=== PATIENT | female | born 1960 | race African-American/Black ===

== ENCOUNTER → 2016-11-09 | Outpatient (CLI) | payer OTHER | LOC: OD 08:15 | PROVIDERS: ATTEND Physician Assistant | DX: M54.5 Low back pain (principal) | CPT/HCPCS: 72110 ==

== ENCOUNTER → 2017-10-01 | Outpatient (CLI) | payer OTHER ==
--- NOTE | 2017-10-01 12:35 | RADIOLOGY REPORT (SQ) ---
EXAM DESCRIPTION: T SPINE AP/LAT COMPLETED DATE/TIME: 10/01/2017 10:34 am REASON FOR STUDY: LOW BACK PAIN M54.5 LOW BACK PAIN COMPARISON: None. NUMBER OF VIEWS: Two views. TECHNIQUE: AP and lateral radiographic images acquired of the thoracic spine. LIMITATIONS: None. FINDINGS: MINERALIZATION: Normal. ALIGNMENT: Slight scoliosis apex to the right. VERTEBRAE: No fracture or bone lesion. Mild anterior osteophytes off of the thoracic vertebrae. DISCS: Slight disc space narrowing at multiple levels. HARDWARE: None in the spine. MEDIASTINUM AND SOFT TISSUES: Normal heart size and aortic contour. No soft tissue abnormality. VISUALIZED LUNG SHAH: Clear. OTHER: No other significant finding. IMPRESSION: 1 Slight scoliosis and mild degenerative changes involving the thoracic spine. 2. No acute osseous findings. TECHNICAL DOCUMENTATION: JOB ID: [id number] [email or web address]- All Rights Reserved Reading location - IP/workstation name: [email or web address]
== END ==
LOC: OD 09:11
PROVIDERS: ATTEND Physician Assistant
DX: M54.5 Low back pain (principal)
CPT/HCPCS: 72070

== ENCOUNTER 2018-01-31 00:27 | Emergency (ER) | payer OTHER ==
[2018-01-31] MEDS ORDERED: ASPIRIN 81 MG TABLET, CHEWABLE PO ONE (01:14)
--- NOTE | 2018-01-31 01:16 | ER Document Report ---
ED Medical Screen (RME) - General Chief Complaint: Palpitations Stated Complaint: CHEST PAIN Time Seen by Provider: 01/31/18 01:11 Mode of Arrival: Ambulatory Information source: Patient Notes: 57-year-old female presented to ED for complaint of heart racing and fluttering a lot for the last 2 weeks. She states it was much worse today. She states it was racing and fluttering all day today. He states she got off work at about 10 and sit down in the chair and her heart was racing so much that she got nervous called her daughter decided to come in to the hospital tonight instead of waiting until she was off work on Sunday. States she has not called and told her doctor about this pain and racing heart. Patient is alert oriented respirations regular and nonlabored lungs clear at this time. No palpitations at this time. I have greeted and performed a rapid initial assessment of this patient. A comprehensive ED assessment and evaluation of the patient, analysis of test results and completion of medical decision making process will be conducted by an additional ED providers. TRAVEL OUTSIDE OF THE [place] IN LAST 30 DAYS: No - Related Data Allergies/Adverse Reactions: No Known Allergies Allergy (Verified 01/08/13 21:04) Past Medical History - Past Medical History Cardiac Medical History: Reports: Hx Hypertension - ON ATENOLOL CONTROLLED WITH MEDS Denies: Hx Coronary Artery Disease, Hx Heart Attack Pulmonary Medical History: Denies: Hx Asthma - HX OF WHEEZING, Hx Bronchitis, Hx COPD, Hx Pneumonia Neurological Medical History: Denies: Hx Cerebrovascular Accident, Hx Seizures Musculoskeltal Medical History: Denies Hx Arthritis - Immunizations Hx Diphtheria, Pertussis, Tetanus Vaccination: Yes Physical Exam - Vital signs Vitals: Temp Pulse Resp BP Pulse Ox 97.9 F 88 16 140/75 H 95 01/31/18 00:49 01/31/18 00:49 01/31/18 00:49 01/31/18 00:49 01/31/18 00:49 Course - Vital Signs Vital signs: Temp Pulse Resp BP Pulse Ox 97.9 F 88 16 140/75 H 95 01/31/18 00:49 01/31/18 00:49 01/31/18 00:49 01/31/18 00:49 01/31/18 00:49 Doctor's Discharge - Discharge Referrals: ELIZABETH,PAOLA, PA [Primary Care Provider] - Follow up as needed
--- NOTE | 2018-01-31 02:04 | RADIOLOGY REPORT (SQ) ---
EXAM DESCRIPTION: XR CHEST 2 VIEWS COMPLETED DATE/TME: 01/31/2018 01:13 CLINICAL HISTORY: chest fluttering and racing COMPARISON: None. FINDINGS: Frontal and lateral views of the chest. Tortuosity of the thoracic aorta. Heart is not enlarged. No consolidation, pneumothorax, or pleural effusion. Degenerative change of the spine. No acute osseous abnormality identified. Upper abdominal soft tissues are unremarkable. IMPRESSION: 1. No acute pulmonary process identified.
[2018-01-31 02:12] LABS: ALANINE AMINOTRANSFERASE 21 U/L (9-52); ALBUMIN 4.2 g/dL (3.5-5.0); ALKALINE PHOSPHATASE 67 U/L (38-126); ANION GAP 10 (5-19); ASPARTATE AMINO TRANSFERASE 16 U/L (14-36); BILIRUBIN,DIRECT 0.3 mg/dL (0.0-0.4); BILIRUBIN,TOTAL 0.6 mg/dL (0.2-1.3); BLOOD UREA NITROGEN 16 mg/dL (7-20); CALCIUM 9.7 mg/dL (8.4-10.2); CARBON DIOXIDE 30 mmol/L (22-30); CHLORIDE 107 mmol/L (98-107); CREATINE KINASE 68 U/L (30-135); GLUCOSE 96 mg/dL (75-110); POTASSIUM 3.7 mmol/L (3.6-5.0); SODIUM 147.3 mmol/L (137-145); TOTAL PROTEIN 7.2 g/dL (6.3-8.2)
[2018-01-31 02:16] LABS: ABSOLUTE BASOPHILS # (AUTO) 0.1 10^3/uL (0.0-0.2); ABSOLUTE EOSINOPHILS # (AUTO) 0.2 10^3/uL (0.0-0.6); ABSOLUTE LYMPHOCYTES (AUTO) 2.2 10^3/uL (0.5-4.7); ABSOLUTE MONOCYTES (AUTO) 0.6 10^3/uL (0.1-1.4); ABSOLUTE NEUT (AUTO) 4.5 10^3/uL (1.7-8.2); BASOPHILS % (AUTO) 0.7 % (0-2); EOSINOPHILS % (AUTO) 3.1 % (0-6); HEMATOCRIT 38.4 % (36.0-47.0); HEMOGLOBIN 13.4 g/dL (12.0-15.5); LYMPHOCYTES % (AUTO) 28.9 % (13-45); MEAN CORPUSCULAR HEMOGLOBIN 31.3 pg (27.0-33.4); MEAN CORPUSCULAR VOLUME 90 fl (80-97); MONOCYTES % (AUTO) 8.1 % (3-13); PLATELET COUNT 184 10^3/uL (150-450); RED BLOOD COUNT 4.29 10^6/uL (3.72-5.28); RED CELL DISTRIBUTION WIDTH 13.5 % (11.5-14.0); SEGMENTED NEUTROPHILS % (AUTO) 59.2 % (42-78); TOTAL CELLS COUNTED % (AUTO) 100 %; WHITE BLOOD COUNT 7.6 10^3/uL (4.0-10.5)
[2018-01-31 02:26] LABS: TROPONIN I < 0.012 ng/mL
--- NOTE | 2018-01-31 03:58 | ER Document Report ---
ED Cardiac - General Chief Complaint: Palpitations Stated Complaint: CHEST PAIN Time Seen by Provider: 01/31/18 01:11 Mode of Arrival: Ambulatory Notes: Patient is a 57-year-old female who presents with chief complaint of palpitations for 2 weeks. Patient reports that it is very irregular, only lasts for a few minutes and then seems to go away on its own. Patient denies any aggravating factors. Patient denies heavy use of caffeine or any other substances. Patient denies any other cardiac history. Patient denies any chest pain or shortness of breath. TRAVEL OUTSIDE OF THE [place] IN LAST 30 DAYS: No - Related Data Allergies/Adverse Reactions: No Known Allergies Allergy (Verified 01/08/13 21:04) Past Medical History - General Information source: Patient - Social History Smoking Status: Current Every Day Smoker Chew tobacco use (# tins/day): No Frequency of alcohol use: Social Drug Abuse: None Lives with: Family Family History: Reviewed & Not Pertinent Patient has suicidal ideation: No Patient has homicidal ideation: No - Past Medical History Cardiac Medical History: Reports: Hx Hypertension - ON ATENOLOL CONTROLLED WITH MEDS Denies: Hx Coronary Artery Disease, Hx Heart Attack Pulmonary Medical History: Denies: Hx Bronchitis, Hx COPD, Hx Pneumonia Comment Only: Hx Asthma - HX OF WHEEZING Neurological Medical History: Denies: Hx Cerebrovascular Accident, Hx Seizures Renal/ Medical History: Denies: Hx Peritoneal Dialysis Musculoskeletal Medical History: Denies Hx Arthritis Past Surgical History: Reports: Hx Section - Immunizations Hx Diphtheria, Pertussis, Tetanus Vaccination: Yes Review of Systems - Review of Systems Constitutional: No symptoms reported EENT: No symptoms reported Cardiovascular: See HPI Respiratory: No symptoms reported Gastrointestinal: No symptoms reported Genitourinary: No symptoms reported Female Genitourinary: No symptoms reported Musculoskeletal: No symptoms reported Skin: No symptoms reported Hematologic/Lymphatic: No symptoms reported Neurological/Psychological: No symptoms reported Physical Exam - Vital signs Vitals: Temp Pulse Resp BP Pulse Ox 97.9 F 88 16 140/75 H 95 01/31/18 00:49 01/31/18 00:49 01/31/18 00:49 01/31/18 00:49 01/31/18 00:49 - Notes Notes: PHYSICAL EXAMINATION: GENERAL: Well-appearing, well-nourished and in no acute distress. HEAD: Atraumatic, normocephalic. EYES: Pupils equal round and reactive to light, extraocular movements intact, conjunctiva are normal. ENT: Nares patent, oropharynx clear without exudates. Moist mucous membranes. NECK: Normal range of motion, supple without lymphadenopathy LUNGS: Breath sounds clear to auscultation bilaterally and equal. No wheezes rales or rhonchi. HEART: Regular rate and rhythm without murmurs ABDOMEN: Soft, nontender, nondistended abdomen. No guarding, no rebound. No masses appreciated. Female : deferred Musculoskeletal: Normal range of motion, no pitting or edema. No cyanosis. NEUROLOGICAL: Cranial nerves grossly intact. Normal speech, normal gait. Normal sensory, motor exams PSYCH: Normal mood, normal affect. SKIN: Warm, Dry, normal turgor, no rashes or lesions noted. Course - Re-evaluation Re-evalutation: 57-year-old otherwise healthy female initially seen by triage provider. Patient has been having intermittent palpitations for the last 2 weeks. Patient reports that these are self resolving. Patient denies any chest pain/ pressure or shortness of breath. EKG during today's visit reveals a sinus rhythm, rate of 92, normal axis with no ST segment elevations or depressions. CBC, comprehensive metabolic panel and troponin are all unremarkable. Chest x- ray is normal with no cardiomegaly. Patient denies any episodes of the palpitations while in the department. Patient has been on the cardiac tech for several hours and we have captured no abnormal heart rhythms. Patient will be discharged in stable condition with plans to follow-up with Dr. Armstrong to discuss possible referral to service station operator for Holter monitoring. Patient understands that she can come back to the emergency department any time, if she experiences another episode of the heart fluttering we are more than happy to see her and do a reevaluation. - Vital Signs Vital signs: Temp Pulse Resp BP Pulse Ox 97.9 F 88 20 120/63 95 01/31/18 00:49 01/31/18 00:49 01/31/18 04:01 01/31/18 04:00 01/31/18 04:01 - Laboratory Result Diagrams: 01/31/18 01:45 01/31/18 01:45 Laboratory results interpreted by me: 01/31/18 01:45 Sodium 147.3 H Discharge - Discharge Clinical Impression: Palpitation Condition: Stable Disposition: HOME, SELF-CARE Additional Instructions: Palpitations (Irregular/Rapid Heartrate) Irregular or rapid heartbeat is called "palpitation." To diagnose the cause of palpitation, we have to "catch it in the act" with an EKG. Sinus Tachycardia: This is a rapid (but NORMAL) rhythm that can be due to fever, pain, anxiety, lack of sleep, over-exertion, or drugs. Cold medications, caffeine, and diet pills are particularly likely to cause tachycardia. Usually , all that's required is rest, reassurance, and avoiding caffeine, alcohol, nicotine, and unnecessary medicines. Paroxysmal Atrial Tachycardia (PAT): This abnormally rapid heartbeat is caused by a "short circuit" in the electrical system of the heart. It is not dangerous, unless other heart disease is present. These attacks of PAT may occur occasionally for years. Medication is available for treatment. Paroxysmal Atrial Fibrillation or Atrial Flutter: This is irregular electrical activity in the upper heart chamber. These abnormal rhythms often occur with valve disease or in hearts damaged by hardening of the arteries. These rhythms usually require further testing, for example a cardiac echo. Premature Beats: Extra beats occur more commonly after caffeine, nicotine , alcohol, cold pills, diet pills. Emotional stress or fatigue also provoke them. Extra beats are only dangerous when heart disease is present. They usually need no treatment. If they're frequent, or if evidence of heart disease develops, medication can be given to suppress them. If we were unable to "catch" the palpitations on EKG, you should try to get an EKG immediately if the symptoms begin again. Contact the physician at once if you develop persistent lightheadedness, shortness of breath, chest pain , or swelling of the ankles. Please follow-up with Dr. Armstrong. Call this morning to get an appointment. You may need to be set up with her service station operator for Holter monitoring. Please return to the emergency department if you develop worsening symptoms, shortness of breath or chest pain. Forms: Return to Work Referrals: PAOLA JOHNSON PA [NO LOCAL MD] - Follow up as needed
[2018-01-31 04:10] VITALS: BP 120/63
--- NOTE | 2018-01-31 20:40 | EKG REPORT ---
SEVERITY:- ABNORMAL ECG - SINUS RHYTHM BIATRIAL ABNORMALITIES : Confirmed by: Sharon Olson MD 31-Jan-2018 20:39:27
== END 2018-01-31 04:16 | disposition home or self-care (01) ==
LOC: ER 00:27
DX: R00.2 Palpitations (principal); R07.9 Chest pain, unspecified; F17.200 Nicotine dependence, unspecified, uncomplicated
CPT/HCPCS: 36415; 71046; 80053; 82550; 82553; 84484; 85025; 93005; 93010; 99285

== ENCOUNTER 2018-08-15 07:19 | Day surgery (SDC) | payer OTHER ==
[2018-08-15] MEDS ORDERED: DIPHENHYDRAMINE HCL 50 MG/ML VIAL ONE (07:27)
[2018-08-15] MEDS ORDERED: FENTANYL CITRATE INJ/PF 100 MCG/2 ML AMPUL ONE (07:27)
[2018-08-15] MEDS ORDERED: ONDANSETRON HCL INJ/PF 4 MG/2 ML SDV ONE (07:27)
[2018-08-15] MEDS ORDERED: EPINEPHRINE INJ 1 MG/10 ML DISP.SYRIN ONE (07:28)
[2018-08-15] MEDS ORDERED: GLUCAGON,HUMAN RECOMB 1 MG INJ ONE (07:28)
[2018-08-15] MEDS ORDERED: NALOXONE HCL INJ/PF 0.4 MG/1 ML SDV ONE (07:28)
[2018-08-15] MEDS ORDERED: FLUMAZENIL INJ 0.5 MG/5 ML VIAL ONE (07:28)
[2018-08-15] MEDS: MIDAZOLAM 2 MG/2 ML INJ ONE ×5 (08:18→08:44)
--- NOTE | 2018-08-15 09:15 | Discharge Summary ---
Discharge Summary (SDC) - Discharge Final Diagnosis: Sigmoid and rectal polyps; diverticulosis Date of Surgery: 08/15/18 Discharge Date: 08/15/18 Condition: Good Treatment or Instructions: [place] [id number] POST ENDOSCOPY DISCHARGE INSTRUCTIONS 1. Diet: Start clear liquids that a regular diet as tolerated. 2. Resume all preoperative medications. All oral anticoagulants and aspirins can be resumed 24 hours after procedure. 3. If a polypectomy was performed some bleeding per rectum may occur. This should stop within 3 days. If not, please contact the office. 4. If you had a colonoscopy you may experience some bloating and delayed return of normal bowel function for several days, your regular bowel movement pattern should resume within a week. 5. Please contact [facility] at to make an appointme nt with Dr. Ye for 1 to 3 weeks following procedure. 6. If you have any questions or concerns regarding your care,treatment plan or follow up, please contact our office. 7. Per clinical guidelines we recommend you undergo a repeat colonoscopy in 3 years or sooner pending final path report on the rectal polyp Referrals: GINA ALMENDAREZ MD [Primary Care Provider] - Discharge Diet: As Tolerated Discharge Activity: Activity As Tolerated Home Care Assistance: None Needed Report the Following to Your Physician Immediately: Shortness of Breath, Increase in Pain, Fever over 101 Degrees
--- NOTE | 2018-08-15 09:18 | Operative Report ---
Operative Report DATE OF SURGERY: 08/15/18 PREOPERATIVE DIAGNOSIS: 1. Personal history of colorectal polyps. 2. History of diverticulosis POSTOPERATIVE DIAGNOSIS: Same with. 1. Sigmoid colon polyps. 2. Upper rectal polyp OPERATION: 1. Total colonoscopy to cecum. 2. Sigmoid colon also rectal polypectomies with cold forceps and hot snare device SURGEON: DAREK CANCHOLA ANESTHESIA: Moderate Sedation TISSUE REMOVED OR ALTERED: Polyps COMPLICATIONS: None ESTIMATED BLOOD LOSS: Scant INTRAOPERATIVE FINDINGS: See below PROCEDURE: Obtaining informed consent the patient was taken from the preoperative holding area to the main endoscopy suite where monitoring devices were attached to the patient. Plan and surgical timeout were conducted The patient was placed in the left lateral decubitus position with knees to chest. A perianal examination was performed. There was no visible or palpable anorectal pathology. Sphincter tone was felt to be normal. Of note the patient required 6 mg of Versed and 100 mcg of fentanyl and had some discomfort during the procedure. The flexible adult colonoscope was advanced through the anal rectal canal, all the way to the cecum. Visualization of the cecum was achieved and the ileocecal valve, the appendiceal orifice and transillumination of the anterior abdominal wall. This was an excellent study on the well-prepped bowel. The colonoscope was withdrawn slowly and methodically checked and the mucosa carefully. There was no evidence of tumor, stricture, bleeding; there were 2 small hyperplastic polyps of the sigmoid colon approximately 33 cm from the anal verge which were removed with the cold snare, sent in the same specimen to pathology. In the upper rectum at approximately 18 cm from the anal verge was a pedunculated polyp approximately 5 mm in diameter which was hot snared removed and sent to pathology as upper rectal polyp. Polypectomy site cauterized satisfactorily. Photos taken. There were a few sigmoid diverticuli. The scope was slowly withdrawn through the anal rectal canal. Complete visualization of the rectum was achieved with photodocumentation. The scope was withdrawn to the patient's anus. The patient tolerated the procedure well and was taken to the recovery area in stable condition. Per surveillance guidelines, patient be appropriate candidate for follow-up colonoscopy in 3 years, or sooner pending final path report.
[2018-08-15 11:08] VITALS: BP 115/67
== END 2018-08-15 10:45 | disposition home or self-care (01) ==
LOC: END 07:19
PROVIDERS: ATTEND Surgery
DX: Z12.11 Encounter for screening for malignant neoplasm of colon (principal); K63.5 Polyp of colon; D12.7 Benign neoplasm of rectosigmoid junction; K57.30 Diverticulosis of large intestine without perforation or abscess without bleeding; Z86.010 Personal history of colon polyps; Z87.19 Personal history of other diseases of the digestive system; Z88.0 Allergy status to penicillin; I83.90 Asymptomatic varicose veins of unspecified lower extremity; I10 Essential (primary) hypertension; R00.2 Palpitations; M19.90 Unspecified osteoarthritis, unspecified site; Z87.891 Personal history of nicotine dependence; Z79.82 Long term (current) use of aspirin; Z79.899 Other long term (current) drug therapy; Z88.1 Allergy status to other antibiotic agents
CPT/HCPCS: 45380; 45385; 88305 ×2; J2250; J3010; J0171; J1200; J1610; J2310; J2405; J3490

== ENCOUNTER 2018-10-14 13:33 | Observation (INO) | payer OTHER ==
[2018-10-14 16:19] LABS: HEMATOCRIT 39.6 % (36.0-47.0); HEMOGLOBIN 13.8 g/dL (12.0-15.5); MEAN CORPUSCULAR HEMOGLOBIN 30.6 pg (27.0-33.4); MEAN CORPUSCULAR HGB CONC 34.8 g/dL (32.0-36.0); MEAN CORPUSCULAR VOLUME 88 fl (80-97); PLATELET COUNT 196 10^3/uL (150-450); RED BLOOD COUNT 4.49 10^6/uL (3.72-5.28); RED CELL DISTRIBUTION WIDTH 13.9 % (11.5-14.0); WHITE BLOOD COUNT 6.1 10^3/uL (4.0-10.5)
[2018-10-14] MEDS ORDERED: HYDROMORPHONE HCL INJ/PF 2 MG/ML AMPULE IV PRN (16:23)
[2018-10-14 16:32] LABS: ALANINE AMINOTRANSFERASE 31 U/L (9-52); ALBUMIN 4.3 g/dL (3.5-5.0); ALKALINE PHOSPHATASE 71 U/L (38-126); ANION GAP 9 (5-19); ASPARTATE AMINO TRANSFERASE 20 U/L (14-36); BILIRUBIN,DIRECT 0.2 mg/dL (0.0-0.4); BILIRUBIN,TOTAL 0.6 mg/dL (0.2-1.3); BLOOD UREA NITROGEN 17 mg/dL (7-20); CALCIUM 10.4 mg/dL (8.4-10.2); CARBON DIOXIDE 27 mmol/L (22-30); CHLORIDE 103 mmol/L (98-107); GLUCOSE 74 mg/dL (75-110); POTASSIUM 4.3 mmol/L (3.6-5.0); SODIUM 139.2 mmol/L (137-145); TOTAL PROTEIN 7.2 g/dL (6.3-8.2)
[2018-10-14] MEDS ORDERED: LORAZEPAM INJ 2 MG/1 ML VIAL ONE (17:59)
[2018-10-14] MEDS: METHYLPREDNISOLONE INJ 125 MG/2 ML SDV IV SCH (18:55)
--- NOTE | 2018-10-14 20:05 | PDOC H&P ---
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 She said she has difficulty performing her duties as a quality assurance auditor because of the radicular symptoms. Attempt was made on multiple occasions to obtain MRI outpatient without success, patient came to the office today literally with mobility dysfunction With symptoms that suggest cauda equina, she was admitted directly into the hospital for observation and management of her symptoms. MRI of the lumbar spine without contrast was obtained, it demonstrated disc bulging at L4-L5 level. There is bilateral facet arthropathy resulting in mild central canal stenosis. Also found was anterolisthesis of L4 on L5.She was admitted for observation, she is started on intravenous Solu-Medrol Past Medical History Cardiac Medical History: Reports: Hypertension - ON ATENOLOL CONTROLLED WITH MEDS GI Medical History: Reports: Gastroesophageal Reflux Disease Musculoskeltal Medical History: Reports: Arthritis Psychiatric Medical History: Reports: Depression Past Surgical History Past Surgical History: Reports: Section Social History Smoking Status: Former Smoker Family History Family History: Reviewed & Not Pertinent Parental Family History Reviewed: Yes Children Family History Reviewed: Yes Sibling(s) Family History Reviewed.: Yes Medication/Allergy Home Medications: Atenolol [Tenormin 50 mg Tablet] 50 mg PO DAILY 10/14/18 Cyclobenzaprine HCl [Flexeril 5 mg Tablet] 5 mg PO BIDP PRN 10/14/18 Meloxicam [Mobic] 7.5 mg PO DAILY 10/14/18 Ranitidine HCl [Zantac 150 mg Tablet] 150 mg PO DAILYP PRN 10/14/18 Pregabalin [Lyrica 75 mg Capsule] 75 mg PO Q12 #60 capsule 10/15/18 Tramadol HCl/Acetaminophen [Tramadol-Acetaminophn 37.5-325] 1 each PO Q6H #60 tablet 10/15/18 Allergies/Adverse Reactions: amoxicillin Allergy (Intermediate, Verified 08/15/18 07:26) SKIN TURNED RED AND ICHING Review of Systems Constitutional: ABSENT: chills, fever(s), headache(s), weight gain, weight loss Eyes: ABSENT: visual disturbances Ears: ABSENT: hearing changes Cardiovascular: ABSENT: chest pain, dyspnea on exertion, edema, orthropnea, palpitations Respiratory: ABSENT: cough, hemoptysis Gastrointestinal: ABSENT: abdominal pain, constipation, diarrhea, hematemesis, hematochezia, nausea, vomiting Genitourinary: ABSENT: dysuria, hematuria Musculoskeletal: ABSENT: joint swelling Integumentary: ABSENT: rash, wounds Neurological: PRESENT: numbness, paresthesias, restless legs Psychiatric: ABSENT: anxiety, depression, homidical ideation, suicidal ideation Endocrine: ABSENT: cold intolerance, heat intolerance, menstrual abnormalities, polydipsia, polyuria Hematologic/Lymphatic: ABSENT: easy bleeding, easy bruising, lymphadenopathy Physical Exam Vital Signs: Temp Pulse Resp BP Pulse Ox 97.7 F 74 17 140/84 H 97 10/14/18 14:49 10/14/18 14:49 10/14/18 14:49 10/14/18 14:49 10/14/18 14:49 Intake & Output 10/13/18 10/14/18 10/15/18 06:59 06:59 06:59 Weight 105 kg General appearance: PRESENT: no acute distress, well-developed, well-nourished Head exam: PRESENT: atraumatic, normocephalic Eye exam: PRESENT: conjunctiva pink, EOMI, PERRLA Ear exam: PRESENT: normal external ear exam Mouth exam: PRESENT: moist, tongue midline Neck exam: PRESENT: full ROM Respiratory exam: PRESENT: clear to auscultation bipin Cardiovascular exam: PRESENT: RRR, +S1, +S2 Vascular exam: PRESENT: normal capillary refill GI/Abdominal exam: PRESENT: normal bowel sounds, soft Rectal exam: PRESENT: deferred Neurological exam: PRESENT: alert, awake, oriented to person, oriented to place, oriented to time, oriented to situation, CN II-XII grossly intact Psychiatric exam: PRESENT: appropriate affect, normal mood Skin exam: PRESENT: dry, intact, warm Results Laboratory Results: 10/14/18 15:20 10/14/18 15:20 10/14/18 10/14/18 15:20 15:20 WBC 6.1 RBC 4.49 Hgb 13.8 Hct 39.6 MCV 88 MCH 30.6 MCHC 34.8 RDW 13.9 Plt Count 196 Sodium 139.2 Potassium 4.3 Chloride 103 Carbon Dioxide 27 Anion Gap 9 BUN 17 Creatinine 0.67 Est GFR ( Amer) > 60 Est GFR (Non-Af Amer) > 60 Glucose 74 L Calcium 10.4 H Total Bilirubin 0.6 AST 20 ALT 31 Alkaline Phosphatase 71 Total Protein 7.2 Albumin 4.3 Assessment & Plan - Diagnosis (1) Radiculopathy of lumbar region Is this a current diagnosis for this admission?: Yes Plan: She has radiculopathy of the lumbar spine, she was admitted for observation, treat with intravenous Solu-Medrol
[2018-10-14] MEDS ORDERED: CYCLOBENZAPRINE HCL 10 MG TABLET PO PRN (23:30)
[2018-10-14] MEDS ORDERED: FAMOTIDINE 20 MG TABLET PO PRN (23:30)
[2018-10-14] MEDS ORDERED: GABAPENTIN 300 MG CAPSULE PO ONE (23:59)
[2018-10-15] MEDS: METHYLPREDNISOLONE INJ 125 MG/2 ML SDV IV SCH ×2 (01:07→09:19)
[2018-10-15] MEDS: GABAPENTIN 300 MG CAPSULE PO SCH ×2 (05:27→14:50)
--- NOTE | 2018-10-15 08:31 | RADIOLOGY REPORT (SQ) ---
EXAM DESCRIPTION: MRI LUMBAR SPINE WITHOUT COMPLETED DATE/TIME: 10/14/2018 6:59 pm REASON FOR STUDY: BACK PAIN COMPARISON: None. TECHNIQUE: Sagittal and Axial imaging includes T1, T2, STIR and gradient echo sequences. Coronal T2/ HASTE imaging. LIMITATIONS: None. FINDINGS: VISUALIZED UPPER ABDOMEN: Limited evaluation. No acute or suspicious findings suggested. SEGMENTATION: No transitional anatomy. The lowest well-developed disc space is labeled L5-S1. ALIGNMENT: There is very slight anterolisthesis of L4 on L5. VERTEBRAE: Intact. BONE MARROW: Normal. No marrow replacement or reactive changes. DISC SIGNAL: Loss of normal water signal at L4-L5. Disc heights are fairly well-maintained. POSTERIOR ELEMENTS: Generally intact. No pars defect evident. HARDWARE: None in the spine. CORD AND CONUS: Normal in size and signal intensity. Conus at the appropriate level. SOFT TISSUES: No aortic aneurysm seen. No bulky retroperitoneal adenopathy or mass. No paraspinal mas s or fluid. L1-L2: No significant spinal stenosis or exit foraminal stenosis. L2-L3: No significant spinal stenosis or exit foraminal stenosis. L3-L4: There is bilateral facet arthropathy. This results in mild foraminal narrowing. L4-L5: There is an disc bulging. There is bilateral facet arthropathy. This results in mild central canal stenosis. There is mild bilateral foraminal narrowing. L5-S1: No significant spinal stenosis or exit foraminal stenosis. LOWER THORACIC: Incompletely imaged. No stenosis seen. SACRUM: Visualized upper sacrum intact. OTHER: No other significant findings. IMPRESSION: 1. Mild annular disc bulging at L4-L5. This along with anterolisthesis of L4 on L5 and facet arthropathy results in mild central canal stenosis. There is bilateral foraminal narrowing. 2. Facet arthropathy at L3-L4 resulting in mild bilateral foraminal narrowing. TECHNICAL DOCUMENTATION: JOB ID: [id number] [employer]- All Rights Reserved Reading location - IP/workstation name: [email or web address]
[2018-10-15] MEDS ORDERED: HYDROMORPHONE HCL INJ/PF 2 MG/ML AMPULE IV PRN (09:30)
[2018-10-15] MEDS ORDERED: MELOXICAM 7.5 MG TABLET PO SCH (10:00)
[2018-10-15] MEDS ORDERED: ATENOLOL 50 MG TABLET PO SCH (10:00)
[2018-10-15 12:33] VITALS: BP 145/80
--- NOTE | 2018-10-15 20:10 | PDOC DISCHARGE SUMMARY ---
General - Admit/Disc Date/PCP Admission Date/Primary Care Provider: 10/14/18 13:33 SOPHY PARKER MD Discharge Date: 10/15/18 - Discharge Diagnosis (1) Radiculopathy of lumbar region Is this a current diagnosis for this admission?: Yes - Additional Information Discharge Diet: As Tolerated Discharge Activity: Activity As Tolerated Prescriptions: Pregabalin [Lyrica 75 mg Capsule] 75 mg PO Q12 #60 capsule Tramadol HCl/Acetaminophen [Tramadol-Acetaminophn 37.5-325] 1 each PO Q6H #60 tablet Home Medications: Atenolol [Tenormin 50 mg Tablet] 50 mg PO DAILY 10/14/18 Cyclobenzaprine HCl [Flexeril 5 mg Tablet] 5 mg PO BIDP PRN 10/14/18 Meloxicam [Mobic] 7.5 mg PO DAILY 10/14/18 Ranitidine HCl [Zantac 150 mg Tablet] 150 mg PO DAILYP PRN 10/14/18 Pregabalin [Lyrica 75 mg Capsule] 75 mg PO Q12 #60 capsule 10/15/18 Tramadol HCl/Acetaminophen [Tramadol-Acetaminophn 37.5-325] 1 each PO Q6H #60 tablet 10/15/18 History of Present Illness History of Present Illness: SHIN LYMAN is a 58 year old female, She came to the office for evaluation of back pain with radicular symptoms involving the lower extremity, she has numbness ,tingling pain aggravated by movement, 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. 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 Attempt was made on multiple occasions to obtain MRI outpatient without success, patient came to the office today literally with mobility dysfunction With symptoms that suggest cauda equina, she was admitted directly into the hospital for observation and management of her symptoms. MRI of the lumbar spine without contrast was obtained, it demonstrated disc bulging at L4-L5 level. There is bilateral facet arthropathy resulting in mild central canal stenosis. Also found was anterolisthesis of L4 on L5.She was admitted for observation, she is started on intravenous Solu-Medrol Hospital Course Hospital Course: Patient was admitted for observation and management of lumbar radiculopathy, she was treated with intravenous Solu-Medrol. The MRI results was explained to the patient, she will be referred to pet nutrition specialist, Dr. Lozoya Physical Exam Vital Signs: Temp Pulse Resp BP Pulse Ox 98.5 F 107 H 22 H 145/80 H 95 10/15/18 18:49 10/15/18 18:49 10/15/18 18:49 10/15/18 18:49 10/15/18 18:49 Intake & Output 10/14/18 10/15/18 10/16/18 06:59 06:59 06:59 Intake Total 640 900 Balance 640 900 Weight 105 kg General appearance: PRESENT: no acute distress Eye exam: PRESENT: PERRLA Mouth exam: PRESENT: moist, tongue midline Neck exam: PRESENT: full ROM Respiratory exam: PRESENT: clear to auscultation bipin Cardiovascular exam: PRESENT: RRR, +S1, +S2 Vascular exam: PRESENT: normal capillary refill GI/Abdominal exam: PRESENT: normal bowel sounds, soft Rectal exam: PRESENT: deferred Neurological exam: PRESENT: alert, CN II-XII grossly intact Psychiatric exam: PRESENT: appropriate affect, normal mood Skin exam: PRESENT: dry, intact, warm Results Laboratory Results: 10/14/18 15:20 10/14/18 15:20 Impressions: Lumbar Spine MRI 10/14/18 00:00 IMPRESSION: 1. Mild annular disc bulging at L4-L5. This along with anterolisthesis of L4 on L5 and facet arthropathy results in mild central canal stenosis. There is bilateral foraminal narrowing. 2. Facet arthropathy at L3-L4 resulting in mild bilateral foraminal narrowing. Qualifiers - * PATIENT BEING DISCHARGED WITH ANY OF THE FOLLOWING DIAGNOSIS: No
== END 2018-10-15 19:30 | disposition home or self-care (01) ==
LOC: 5 13:33
PROVIDERS: ADMIT Internal Medicine; ATTEND Internal Medicine
DX: M54.16 Radiculopathy, lumbar region (principal); M48.061 Spinal stenosis, lumbar region without neurogenic claudication; R26.9 Unspecified abnormalities of gait and mobility; M19.90 Unspecified osteoarthritis, unspecified site; I10 Essential (primary) hypertension; K21.9 Gastro-esophageal reflux disease without esophagitis; Z79.899 Other long term (current) drug therapy; Z87.891 Personal history of nicotine dependence
CPT/HCPCS: 36415; 85027; 80076; 80048; 72148; G0378 ×2; G0379; J2930 ×2; J2060

== ENCOUNTER → 2019-11-28 | Outpatient (CLI) | payer OTHER ==
--- NOTE | 2019-11-28 10:47 | RADIOLOGY REPORT (SQ) ---
EXAM DESCRIPTION: MRI LUMBAR SPINE WITHOUT IMAGES COMPLETED DATE/TIME: 11/28/2019 10:35 am REASON FOR STUDY: M54.1 RADICULOPATHY, LUMBAR REGION M54.12 RADICULOPATHY, CERVICAL REGION M54.16 RADICULOPATHY, LUMBAR REGION COMPARISON: None. TECHNIQUE: Sagittal and Axial imaging includes T1, T2, STIR and gradient echo sequences. Coronal T2/ HASTE imaging. LIMITATIONS: None. FINDINGS: VISUALIZED UPPER ABDOMEN: Limited evaluation. No acute or suspicious findings suggested. SEGMENTATION: No transitional anatomy. The lowest well-developed disc space is labeled L5-S1. ALIGNMENT: Grade 1 anterolisthesis of L4 on L5. VERTEBRAE: Intact. BONE MARROW: Normal. No marrow replacement or reactive changes. DISC SIGNAL: Loss of normal water signal at L4-L5 consistent with desiccation. POSTERIOR ELEMENTS: Generally intact. No pars defect evident. HARDWARE: None in the spine. CORD AND CONUS: Normal in size and signal intensity. Conus at the appropriate level. SOFT TISSUES: No aortic aneurysm seen. No bulky retroperitoneal adenopathy or mass. No paraspinal mas s or fluid. L1-L2: No significant spinal stenosis or exit foraminal stenosis. L2-L3: No significant spinal stenosis or exit foraminal stenosis. L3-L4: No significant spinal stenosis or exit foraminal stenosis. L4-L5: Broad-based disc/osteophyte complex. Bilateral facet arthropathy. This combination results i n mild to moderate central stenosis. Mild asymmetric narrowing of the left neural foramina. L5-S1: No significant spinal stenosis or exit foraminal stenosis. LOWER THORACIC: Incompletely imaged. No stenosis seen. SACRUM: Visualized upper sacrum intact. OTHER: No other significant findings. IMPRESSION: Grade 1 anterolisthesis of L4 on L5 along with annular disc bulging and facet arthropath y results in mild to moderate central stenosis. Slight asymmetric narrowing of the left neural ainsley nataliia. TECHNICAL DOCUMENTATION: JOB ID: [id number] [employer]- All Rights Reserved Reading location - IP/workstation name: [email or web address]
--- NOTE | 2019-11-28 11:00 | RADIOLOGY REPORT (SQ) ---
EXAM DESCRIPTION: MRI CERVICAL SPINE WITHOUT IMAGES COMPLETED DATE/TIME: 11/28/2019 10:35 am REASON FOR STUDY: M54.12 RADICULOPATHY, CERVICAL REGION M54.12 RADICULOPATHY, CERVICAL REGION M54.1 6 RADICULOPATHY, LUMBAR REGION COMPARISON: None. TECHNIQUE: Sagittal and Axial imaging includes T1, T2, STIR and gradient echo sequences. LIMITATIONS: None. FINDINGS: ALIGNMENT: Normal. VERTEBRAE: Intact. BONE MARROW: Normal. No marrow replacement or reactive changes. DISCS: Loss of normal water signal throughout the cervical spine consistent with desiccation. Small anterior osteophytes throughout the cervical spine. HARDWARE: None in the spine. CORD AND BASE OF BRAIN: Normal in size and signal intensity. SOFT TISSUES: No soft tissue masses. C1-C2: No significant spinal stenosis. C2-C3: No significant spinal stenosis or exit foraminal stenosis. C3-C4: Disc/osteophyte complex with asymmetric narrowing of the right neural foramina. No significan t central stenosis despite slight anterior effacement anterior thecal sac. C4-C5: Broad-based disc/osteophyte complex. No foraminal stenosis or significant central canal narro wing. C5-C6: Broad-based annular disc bulging. No significant central stenosis or foraminal narrowing. C6-C7: No significant spinal stenosis or exit foraminal stenosis. C7-T1: No significant spinal stenosis or exit foraminal stenosis. UPPER THORACIC: Incompletely imaged. No significant spinal stenosis or exit foraminal stenosis. OTHER: No other significant finding. IMPRESSION: Mild multilevel spondylosis. Slight asymmetric narrowing of the right neural foramina a t C3-4. No other significant findings. TECHNICAL DOCUMENTATION: JOB ID: [id number] 2010 [employer]- All Rights Reserved Reading location - IP/workstation name: [email or web address]
== END ==
LOC: RAD 08:52
PROVIDERS: ATTEND Internal Medicine
DX: M50.122 Cervical disc disorder at C5-C6 level with radiculopathy (principal); M51.16 Intervertebral disc disorders with radiculopathy, lumbar region; M47.812 Spondylosis without myelopathy or radiculopathy, cervical region
CPT/HCPCS: 72141; 72148

== ENCOUNTER → 2020-06-30 | Outpatient (CLI) | payer BC ==
[2020-06-30 11:57] LABS: ABSOLUTE EOSINOPHILS # (AUTO) 0.2 10^3/uL (0.0-0.6); ABSOLUTE LYMPHOCYTES (AUTO) 2.7 10^3/uL (0.5-4.7); ABSOLUTE MONOCYTES (AUTO) 0.5 10^3/uL (0.1-1.4); ABSOLUTE NEUT (AUTO) 3.5 10^3/uL (1.7-8.2); BASOPHILS % (AUTO) 0.7 % (0-2); EOSINOPHILS % (AUTO) 2.5 % (0-6); HEMATOCRIT 43.7 % (36.0-47.0); HEMOGLOBIN 15.1 g/dL (12.0-15.5); LYMPHOCYTES % (AUTO) 39.5 % (13-45); MEAN CORPUSCULAR HEMOGLOBIN 31.1 pg (27.0-33.4); MEAN CORPUSCULAR HGB CONC 34.5 g/dL (32.0-36.0); MEAN CORPUSCULAR VOLUME 90 fl (80-97); MONOCYTES % (AUTO) 6.7 % (3-13); PLATELET COUNT 188 10^3/uL (150-450); RED BLOOD COUNT 4.84 10^6/uL (3.72-5.28); SEGMENTED NEUTROPHILS % (AUTO) 50.6 % (42-78); TOTAL CELLS COUNTED % (AUTO) 100 %; WHITE BLOOD COUNT 6.9 10^3/uL (4.0-10.5)
[2020-06-30 12:15] LABS: ALBUMIN 4.6 g/dL (3.5-5.0); ALKALINE PHOSPHATASE 82 U/L (38-126); ANION GAP 6 (5-19); ASPARTATE AMINO TRANSFERASE 21 U/L (14-36); BILIRUBIN,DIRECT 0.1 mg/dL (0.0-0.4); BILIRUBIN,TOTAL 0.7 mg/dL (0.2-1.3); BLOOD UREA NITROGEN 18 mg/dL (7-20); CALCIUM 10.2 mg/dL (8.4-10.2); CARBON DIOXIDE 31 mmol/L (22-30); CHLORIDE 103 mmol/L (98-107); GLUCOSE 97 mg/dL (75-110); POTASSIUM 4.6 mmol/L (3.6-5.0); TOTAL PROTEIN 7.7 g/dL (6.3-8.2)
[2020-06-30 12:23] LABS: CREATINE KINASE MB 0.33 ng/mL (<4.55)
[2020-06-30 12:29] LABS: TROPONIN I < 0.012 ng/mL
== END ==
LOC: OD 10:45
PROVIDERS: ATTEND Physician Assistant
DX: R07.9 Chest pain, unspecified (principal)
CPT/HCPCS: 36415; 80053; 82550; 82553; 84484; 85025

== ENCOUNTER → 2020-06-30 | Outpatient (CLI) | payer BC ==
--- NOTE | 2020-06-30 10:18 | RADIOLOGY REPORT (SQ) ---
EXAM DESCRIPTION: CHEST 2 VIEWS IMAGES COMPLETED DATE/TIME: 06/30/2020 9:30 am REASON FOR STUDY: CHEST PAIN COMPARISON: 01/31/2018 EXAM PARAMETERS: NUMBER OF VIEWS: two views TECHNIQUE: Digital Frontal and Lateral radiographic views of the chest acquired. RADIATION DOSE: NA LIMITATIONS: none FINDINGS: LUNGS AND PLEURA: No opacities, masses or pneumothorax. No pleural effusion. MEDIASTINUM AND HILAR STRUCTURES: No masses or contour abnormalities. HEART AND VASCULAR STRUCTURES: Heart normal size. No evidence for failure. BONES: No acute findings. HARDWARE: None in the chest. OTHER: No other significant finding. IMPRESSION: NO ACUTE RADIOGRAPHIC FINDING IN THE CHEST. TECHNICAL DOCUMENTATION: JOB ID: [id number] 2010 [employer]- All Rights Reserved Reading location - IP/workstation name: [email or web address]
== END ==
LOC: RAD 09:10
PROVIDERS: ATTEND Physician Assistant
DX: R07.9 Chest pain, unspecified (principal)
CPT/HCPCS: 71046